=== PATIENT | female | born 1980 | race Caucasian/White ===

== ENCOUNTER 2016-11-08 12:38 | Emergency (ER) | payer MEDICAID ==
[~2016-11-08] VITALS: Ht 160 cm; Wt 98.0 kg
[~2016-11-08 12:38] MED LIST: AMOX875T PO; ATOR20TA PO; FLUT1SPR9 EACH NARE; PRED20 PO; PROMSYP39 PO; SERT-132 PO
[2016-11-08 12:46] VITALS: BP 134/85; PULSE 81; RESP 16; TEMP 97.6; O2SAT 100
[2016-11-08] MEDS ORDERED: ORPHENADRINE INJ 60 MG/2 ML AMP IM ONE (13:45)
[2016-11-08] MEDS ORDERED: KETOROLAC TROMETHAMINE 60 MG/2 ML (IM) VIAL IM ONE (13:45)
--- NOTE | 2016-11-08 13:46 | PD ---
HPI Chief Complaint: Back/ Neck Pain or Injury Time Seen by Provider: 13:42 Travel History International Travel<30 days: No Contact w/Intl Traveler<30days: No Traveled to known affect area: No History of Present Illness HPI 35-year-old female presents to the emergency department for evaluation after she fell down approximately 5 steps this morning. She states that she was stepping over the baby gait when she lost her footing, falling back and hitting the back of her neck against the baby gait. She states that then she slid down on her back 5 steps. Patient does not believe she hit her head and denies loss of consciousness. She complains of neck and back pain. She also report some rib pain. She denies any abdominal pain. Today she was nauseated, but denies vomiting. She has been ambulatory since the fall. She has no chronic medical problems and takes no prescribed medications. She denies any chance of . [facility] Past Medical History Medical History: Denies Significant Hx High Cholesterol: Yes COPD: Yes Diminished Hearing: No Psychiatric: Yes (OCD) Tetanus Vaccination: Unknown ?: Not LMP: on control Past Surgical History Surgical History: No Previous Surgery Section: Yes Social History Alcohol Use: Yes Tobacco Use: No Substance Use: No Allergies-Medications (Allergen,Severity, Reaction): Coded Allergies: No Known Allergies (Unverified , 11/08/16) Reported Meds & Prescriptions Reported Meds & Active Scripts Active No Active Prescriptions or Reported Medications Review of Systems Except as stated in HPI: all other systems reviewed are Neg Physical Exam Narrative GENERAL: Well-developed well-nourished female patient, ambulatory. Afebrile. SKIN: Warm and dry. No lacerations or abrasions. HEAD: Normocephalic. Atraumatic. EYES: No scleral icterus. No injection or drainage. PERRLA. ENT: Mucosa pink and moist. No erythema or exudates. No uvular edema. No uvular , palatal, or tonsillar deviation. Airway patent. Nasal turbinates appear normal without nasal blood, purulent drainage or septal hematoma. Bilateral tympanic membranes are clear without erythema or perforation. NECK: Supple, trachea midline. No JVD or lymphadenopathy. CARDIOVASCULAR: Regular rate and rhythm without murmurs, gallops, or rubs. RESPIRATORY: Breath sounds equal bilaterally. No accessory muscle use. Lungs sounds are clear to auscultation. GASTROINTESTINAL: Abdomen soft and nondistended. Mild tenderness over epigastric region. MUSCULOSKELETAL: No cyanosis, or edema. Patient has tenderness over anterior chest wall. BACK: No obvious deformity. No CVA tenderness. Patient has tenderness over midline cervical, midline thoracic, midline lumbar spine. Patient is wearing cervical collar that was applied in triage. Data Data Last Documented VS Vital Signs Date Time Temp Pulse Resp B/P Pulse Ox O2 Delivery O2 Flow Rate FiO2 11/08/16 12:46 97.6 81 16 134/[address] Cerv Spine W/O Contrast (11/08/16 ) Spine, Lumbar - Ltd (Ap & Lat) (11/08/16 ) Spine, Thoracic-Ap/Lat/Sw(3vw) (11/08/16 ) Chest, Single Ap (11/08/16 ) Ketorolac Inj (Toradol Inj) (11/08/16 13:45) Orphenadrine Inj (Norflex Inj) (11/08/16 13:45) MDM Medical Decision Making Medical Screen Exam Complete: Yes Emergency Medical Condition: Yes Medical Record Reviewed: Yes Interpretation(s) CT cervical spine CONCLUSION: No acute cervical spine abnormality is identified. X-ray thoracic spine CONCLUSION: No acute abnormality is identified. X-ray lumbar spine CONCLUSION: No lumbar spine abnormality is identified. X-ray chest - CONCLUSION: No acute cardiopulmonary abnormality is identified. Differential Diagnosis Muscle strain versus spasm versus fracture versus contusion Narrative Course 35-year-old female presents to the emergency department for evaluation after she tripped and fell down 5 steps this morning. Patient has mild tenderness over epigastric region to palpation. However, patient denies any abdominal pain otherwise and states she never hit her abdomen when falling. I discussed doing imaging of her abdomen and she agrees that this is not indicated at this time. She is adamant she did not hit her abdomen. CT of the cervical spine is ordered and pending. X-ray of the thoracic spine, lumbar spine, chest are ordered and pending. CT of the cervical spine is negative. X-ray of the thoracic spine shows no acute abnormality. X-ray of the lumbar spine shows no acute abnormality. X- ray of the chest shows no acute cardiopulmonary abnormality. Upon reexamination, patient no longer has any abdominal pain to palpation. She' ll be discharged prescription for diclofenac and Robaxin. She is encouraged to follow up with her primary care physician. She verbalizes agreement and understanding. Diagnosis Primary Impression: Cervical strain, acute Qualified Code: S16.1XXA - Cervical strain, acute, initial encounter Additional Impression: Low back pain Qualified Code: M54.5 - Acute bilateral low back pain without sciatica Referrals: Primary Care Physician call for appointment Patient Instructions: Acute Low Back Pain (ED), Cervical Strain (ED), General Instructions Additional Instructions: Rest. Ice for 20 minutes 4-5 times daily. Take diclofenac as directed as needed with food for pain. Take Robaxin as instructed as needed. Follow-up with a primary care physician. Return to the emergency department for any acute worsening of symptoms. Med/Other Pt SpecificInfo: Prescription(s) given Scripts Methocarbamol (Robaxin)750 Mg [id number] Mg PO TID PRN (MUSCLE SPASM) #21 TAB Ref 0 Prov:Ivett Avila 11/08/16 Diclofenac Potassium 50 Mg Tab50 Mg PO TID PRN (PAIN SCALE 1 TO 10) #21 TAB Ref 0 Prov:Ivett Avila 11/08/16 Disposition: 01 DISCHARGE HOME Condition: Stable Ivett Avila Nov 08, 2016 13:46
--- NOTE | 2016-11-08 14:57 | RADHPO ---
EXAM DATE/TIME: 11/08/2016 14:18 [facility] COMPARISON: No previous studies available for comparison. INDICATIONS : Lower back pain post fall down stairs last night. MEDICAL HISTORY : None. SURGICAL HISTORY : None. ENCOUNTER: Initial ACUITY: 1 day PAIN SCORE: 8/10 LOCATION: lumbar spine. FINDINGS: Three views of the lumbar spine demonstrate five alh-nri-xkickeq lumbar vertebral bodies. No fracture or compression deformity is present. There is no anterolisthesis or retrolisthesis. No significant a rthropathy is present. The visualized paraspinous soft tissues and pelvic bones demonstrate no acute abnormality. CONCLUSION: No lumbar spine abnormality is identified. Get Augustine MD on November 08, 2016 at 14:55 Board Certified Radiologist. This report was verified electronically.
--- NOTE | 2016-11-08 14:58 | RADHPO ---
EXAM DATE/TIME: 11/08/2016 14:22 [facility] COMPARISON: No previous studies available for comparison. INDICATIONS : Pain post fall down stairs last night. MEDICAL HISTORY : None. SURGICAL HISTORY : None. ENCOUNTER: Initial ACUITY: 1 day PAIN SCORE: 8/10 LOCATION: chest FINDINGS: Portable AP view of the chest demonstrates a normal-sized cardiac silhouette. No effusion, consolidat ion, or pneumothorax is visualized. The bones and soft tissues demonstrate no acute abnormality. Ther e is mild atelectasis at the lung bases due to underinflation. CONCLUSION: No acute cardiopulmonary abnormality is identified. Get Augustine MD on November 08, 2016 at 14:56 Board Certified Radiologist. This report was verified electronically.
--- NOTE | 2016-11-08 15:11 | RADHPO ---
EXAM DATE/TIME: 11/08/2016 14:41 [facility] COMPARISON: No previous studies available for comparison. INDICATIONS : Fall onto posterior neck today. RADIATION DOSE: 26.37 CTDIvol (mGy) MEDICAL HISTORY : Chronic obstructive pulmonary disease. SURGICAL HISTORY : None. ENCOUNTER: Initial ACUITY: 1 day PAIN SCALE: 6/10 LOCATION: Bilateral neck TECHNIQUE: Volumetric scanning of the cervical spine was performed. Multiplanar reconstructions in the sagittal, coronal and oblique axial planes were performed. Using automated exposure control and adjustment o f the mA and/or kV according to patient size, radiation dose was kept as low as reasonably achievable to obtain optimal diagnostic quality images. FINDINGS: There is normal sagittal spine alignment of the cervical spine. No anterolisthesis or retrolisthesis is present. The atlantoaxial relationship is within normal limits. There is no prevertebral soft tiss ue swelling present. No fracture or dislocation is identified. No disc herniation is visualized in th e upper cervical spine. The visualized portions of the posterior fossa, paraspinous soft tissues, and upper lung zones demons trate no acute abnormality. CONCLUSION: No acute cervical spine abnormality is identified. Get Augustine MD on November 08, 2016 at 15:07 Board Certified Radiologist. This report was verified electronically.
--- NOTE | 2016-11-08 15:34 | RADHPO ---
EXAM DATE/TIME: 11/08/2016 14:23 [facility] COMPARISON: No previous studies available for comparison. INDICATIONS : Upper back pain post fall down stairs last night. MEDICAL HISTORY : None. SURGICAL HISTORY : None. ENCOUNTER: Initial ACUITY: 1 day PAIN SCORE: 8/10 LOCATION: thoracic spine. FINDINGS: 4 views of the thoracic spine demonstrate no fracture or compression deformity. There is no anterolis thesis or retrolisthesis. Disc heights are preserved. Visualized surrounding structures demonstrate no acute abnormality. CONCLUSION: No acute abnormality is identified. Get Augustine MD on November 08, 2016 at 15:32 Board Certified Radiologist. This report was verified electronically.
[2016-11-08] MEDS ORDERED: DICL50TA PO (15:39)
[2016-11-08] MEDS ORDERED: ROBA750T PO (15:39)
[2016-11-08 15:47] VITALS: BP 122/78
== END 2016-11-08 15:49 | disposition home or self-care (01) ==
LOC: PHEFT 12:38
DX: S16.1XXA Strain of muscle, fascia and tendon at neck level, initial encounter (principal); M54.5 Low back pain; E78.00 Pure hypercholesterolemia, unspecified; J44.9 Chronic obstructive pulmonary disease, unspecified; W10.9XXA Fall (on) (from) unspecified stairs and steps, initial encounter; Y93.89 Activity, other specified; Y99.9 Unspecified external cause status
CPT/HCPCS: 71010; 72072; 72100; 72125; 96372; 99284; J1885; J2360